=== PATIENT | female | born 1965 | race Caucasian/White ===

== ENCOUNTER 2017-06-18 21:26 | Emergency (ER) | payer BC ==
[~2017-06-18] VITALS: Ht 160 cm; Wt 57.2 kg
--- NOTE | 2017-06-18 22:03 | NUR ---
ARRIVAL PATIENT AMBULATORY TO ROOM 6, ASSESSMENT COMPLETED, CONNECTED TO ALL MONITORS, AWAITING MD GIRON.
--- NOTE | 2017-06-18 22:04 | ER.PDOC ---
General Chief Complaint: Requesting Medical Care Stated Complaint: NAUSEA,DIARRHEA (COLORLESS),COUGH Time seen by MD: 21:57 Source: patient Exam Limitations: no limitations History of Present Illness Initial Comments nvd Timing/Duration: 24 hours Severity/Quality: mild Abdominal Pain Onset Location: Epigastric Associated Symptoms (vomiting): mild vomiting Associated Symptoms (diarrhea): mild Prior symptoms/Treatment: Similar symptoms previous Allergies: Coded Allergies: duloxetine (Verified Allergy, Mild, 06/18/17) Bleach (Sodium Hypochlorite) (Verified Allergy, Unknown, 06/18/17) amoxicillin (Verified Allergy, Unknown, 06/18/17) celecoxib (Verified Allergy, Unknown, 06/18/17) cyclobenzaprine (Verified Allergy, Unknown, 06/18/17) tramadol (Verified Allergy, Unknown, 06/18/17) Vital Signs First Vital Signs Date Time Temp Pulse Resp B/P (MAP) Pulse Ox O2 Delivery O2 Flow Rate FiO2 06/18/17 21:57 98.3 87 18 95 06/18/17 22:01 157/99 (118) Last Vital Signs Date Time Temp Pulse Resp B/P (MAP) Pulse Ox O2 Delivery O2 Flow Rate FiO2 06/18/17 22:01 98.3 87 18 157/99 (118) 95 Family History Significant Family History: no pertinent family hx Constitutional: denies fever Respiratory: denies cough Cardiovascular: denies chest pain Gastrointestinal: denies abdomen distended, nausea, vomiting Musculoskeletal: denies back pain All Other Systems: Reviewed and Negative Physical Exam General Appearance: No Apparent Distress, WD/WN HEENT: PERRL/EOMI, Normal ENT Inspection, TMs Normal, Pharynx Normal Neck: Non-Tender, Full Range of Motion, Supple, Normal Inspection Respiratory: chest non-tender, lungs clear, normal breath sounds, no respiratory distress, no accessory muscle use Cardiovascular: Normal Peripheral Pulses, Regular Rate, Rhythm, No Edema, No Gallop, No JVD, No Murmur Gastrointestinal: Normal Bowel Sounds, Non Tender, Soft Rectal: Normal Exam Back: Normal Inspection, No CVA Tenderness, No Vertebral Tenderness Extremities: Normal Range of Motion, Non-Tender, Normal Inspection, No Pedal Edema, No Calf Tenderness, Normal Capillary Refill, Pelvis Stable Neurologic/Psychiatric: user interface developer II-XII NML as Tested, No Motor/Sensory Deficits, Alert, Normal Mood/Affect, Oriented x 3 Skin: Normal Color, Warm/Dry Lymphatic: No Adenopathy Progress Progress ua Departure Time of Disposition: 22:34 Disposition: 01 HOME, SELF-CARE Impression: Primary Impression: UTI (urinary tract infection) Condition: Stable Referrals: PCP,UNKNOWN (PCP) PRIMARY CARE PROVIDER Additional Instructions: cipro pyridium MAL MANRIQUE Dr., MD Jun 18, 2017 22:04
[2017-06-18 22:44] LABS: BASOPHIL % 0.2 % (0.0-0.2); EOSINOPHIL % 0.1 % (0.0-5.0); HEMOGLOBIN 18.3 g/dL (12.0-15.0); LYMPHOCYTES # 1.7 10^3/uL (1.0-4.8); LYMPHOCYTES % 12.9 % (24.0-44.0); MEAN CELL HGB 33.1 pg (26-34); MEAN CELL HGB CONCENTRATION 34.3 g/dL (33-37); MEAN CORP VOLUME 96.6 fL (78-100); MEAN PLATELET VOLUME 10.4 fL (7.8-11.0); MONOCYTES # 0.6 10^3/uL (0.3-0.8); MONOCYTES % 4.7 % (5.0-12.0); NEUTROPHIL # 10.9 10^3/uL (1.8-7.7); NEUTROPHILS % 81.9 % (41.0-85.0); WHITE BLOOD CELL 13.3 10^3/uL (4.5-11.0)
[2017-06-18] MEDS ORDERED: NS 1000ML 1,000 ML IV ONE ×2 (22:55→23:00)
[2017-06-18] MEDS ORDERED: NS 1000ML 1,000 ML ONE (22:56)
[2017-06-18 23:10] LABS: CALCIUM 9.9 mg/dL (8.4-10.5); CARBON DIOXIDE 25.1 mmol/L (20.0-32)
[2017-06-18 23:49] LABS: BILIRUBIN,URINE NEGATIVE (NEGATIVE); UROBILINOGEN,URINE NORMAL (NEGATIVE)
[2017-06-18 23:57] LABS: APPEARANCE,URINE CLEAR (CLEAR); UA COLOR DARK YELLOW (YELLOW); WBC,URINE 0-2 WBC/HPF (0-2)
[2017-06-19 00:36] VITALS: BP 146/66
== END 2017-06-19 00:38 | disposition home or self-care (01) ==
LOC: EEVIPCON 21:26 → ER 21:26
DX: N39.0 Urinary tract infection, site not specified (principal); R11.2 Nausea with vomiting, unspecified; Z88.0 Allergy status to penicillin; Z88.8 Allergy status to other drugs, medicaments and biological substances
CPT/HCPCS: 36415; 80053; 81000; 82150; 82550; 82553; 83690; 85025; 86710; 96360; 99284; A4628; J7030

== ENCOUNTER → 2017-07-31 | Outpatient (CLI) | payer BC ==
--- NOTE | 2017-07-31 14:53 | DIREP ---
PROCEDURE:MRI SPINE LUMBAR W/O COMPARISON:None. INDICATIONS:LBP, RADIATES LEFT AND DOWN LEG TECHNIQUE:A comprehensive examination was performed utilizing a variety of imaging planes and imaging parameters to optimize visualization of suspected pathology. Images were performed without intravenous gadolinium contrast. FINDINGS: ALIGNMENT:No scoliosis. Mild straightening of the normal lumbar lordosis. Vertebral body alignment is maintained. Facet joints appear intact. VERTEBRA:No compression deformity or suspicious bone marrow edema. Multilevel discogenic endplate changes. CORD/CAUDA EQUINA:The conus medullaris terminates at the level of L1-L2. PARASPINAL AREA:No suspicious abnormality of the imaged paraspinal soft tissues. LUMBAR DISC LEVELS T12-L1:No significant posterior disc pathology. Minimal facet arthropathy. No spinal stenosis or neural foraminal encroachment. L1-L2:No significant posterior disc pathology. Minimal facet arthropathy. No spinal stenosis or neural foraminal encroachment. L2-L3:Minimal posterior disc bulge. Mild facet arthropathy. No spinal stenosis. Minimal encroachment on the inferior neural foramina bilaterally. L3-L4:Minimal posterior disc bulge. Mild facet arthropathy. No spinal stenosis. No significant neural foraminal encroachment. L4-L5:Mild diffuse disc bulge with superimposed mild focal left paracentral disc protrusion. This does not result in significant spinal stenosis; however, there is narrowing of the left lateral recess which approximates the left L5 nerve root. Mild facet arthropathy. Mild encroachment on the inferior neural foramina bilaterally. L5-S1:No significant posterior disc pathology. [id number] facet arthropathy. No spinal stenosis. [id number] left neural foraminal encroachment which may contact the undersurface of the left L5 nerve root. Minimal right neural foraminal encroachment. CONCLUSION: 1. No acute osseous abnormality or vertebral body malalignment. 2. Multilevel degenerative disc and spine disease, most prominent within the lower lumbar spine. There is no significant spinal stenosis; however, there is a mild disc bulge with superimposed mild focal left paracentral disc protrusion at L4-L5 which does result in narrowing of the left lateral recess and may potentially affect the left L5 nerve root prior to its exit through the neural foramina. There is mild to moderate encroachment on the left inferior neural foramina at L5-S1 which also may contact the undersurface of the left L5 nerve root. Please correlate with the level of reported radiculopathy. Dictated by: Michael Cooper M.D. On 07/31/2017 at 02:38 PM
== END | disposition home or self-care (01) ==
LOC: RAD 09:07
DX: M51.16 Intervertebral disc disorders with radiculopathy, lumbar region (principal); M48.061 Spinal stenosis, lumbar region without neurogenic claudication
CPT/HCPCS: 72148

== ENCOUNTER → 2017-08-10 | Outpatient (CLI) | payer BC ==
[2017-08-10 16:43] LABS: BASOPHIL % 0.3 % (0.0-0.2); EOSINOPHIL # 0.2 10^3/uL (0.0-0.2); EOSINOPHIL % 3.2 % (0.0-5.0); HEMOGLOBIN 15.3 g/dL (12.0-15.0); LYMPHOCYTES # 2.3 10^3/uL (1.0-4.8); LYMPHOCYTES % 31.2 % (24.0-44.0); MEAN CELL HGB 32.9 pg (26-34); MEAN CELL HGB CONCENTRATION 33.6 g/dL (33-37); MEAN CORP VOLUME 98.1 fL (78-100); MEAN PLATELET VOLUME 9.1 fL (7.8-11.0); MONOCYTES # 0.5 10^3/uL (0.3-0.8); MONOCYTES % 6.7 % (5.0-12.0); NEUTROPHIL # 4.2 10^3/uL (1.8-7.7); NEUTROPHILS % 58.5 % (41.0-85.0); RED CELL DISTRIBUTION WIDTH 12.4 % (11.5-14.5); WHITE BLOOD CELL 7.2 10^3/uL (4.5-11.0)
[2017-08-10 16:50] LABS: BILIRUBIN,URINE NEGATIVE (NEGATIVE); UROBILINOGEN,URINE NORMAL (NEGATIVE)
[2017-08-10 17:12] LABS: APPEARANCE,URINE CLEAR (CLEAR); UA COLOR YELLOW (YELLOW)
[2017-08-10 17:13] LABS: CARBON DIOXIDE 29.3 mmol/L (20.0-32)
== END | disposition home or self-care (01) ==
LOC: LAB 16:13
PROVIDERS: ATTEND Internal Medicine
DX: Z13.220 Encounter for screening for lipoid disorders (principal); Z13.21 Encounter for screening for nutritional disorder; Z13.228 Encounter for screening for other metabolic disorders; Z13.29 Encounter for screening for other suspected endocrine disorder; Z79.899 Other long term (current) drug therapy
CPT/HCPCS: 36415; 80053; 80061; 81000; 82043; 83036; 84439; 84443; 85025; 87086

== ENCOUNTER → 2017-10-08 | Outpatient (CLI) | payer BC ==
[2017-10-08 14:45] LABS: CALCIUM 9.1 mg/dL (8.4-10.5)
== END | disposition home or self-care (01) ==
LOC: LAB 14:12
PROVIDERS: ATTEND Internal Medicine
DX: B02.33 Zoster keratitis (principal); Z79.899 Other long term (current) drug therapy
CPT/HCPCS: 36415; 80053

== ENCOUNTER → 2017-12-18 | Outpatient (CLI) | payer BC ==
--- NOTE | 2017-12-18 12:27 | DIREP ---
PROCEDURE:MRI SPINE CERVICAL W/O COMPARISON:None. INDICATIONS:CERVICALGIA TECHNIQUE:A variety of imaging planes and parameters were utilized for visualization of suspected pathology without contrast. Disc bulge. FINDINGS: CRANIOCERVICAL AREA:Normal foramen magnum with no Chiari malformation. ALIGNMENT:Normal. VERTEBRA:C5-C7 anterior cervical disc fusion changes. No fracture or osseous lesions. SPINAL CORD:Normal size, contour, and signal intensity. PARASPINAL AREA:Normal with no visible mass. OTHER:No additional findings. CERVICAL DISC LEVELS: C2-C3:No significant disc/facet abnormality, spinal stenosis, or foraminal stenosis. C3-C4:Moderate right and mild left neural foraminal narrowing from uncovertebral joint hypertrophy. C4-C5:No significant disc/facet abnormality, spinal stenosis, or foraminal stenosis. C5-C6:No significant disc/facet abnormality, spinal stenosis, or foraminal stenosis. C6-C7:Uncovertebral spurring, resulting and moderate left neural foraminal narrowing. Mild right neural foraminal narrowing. C7-T1:No significant disc/facet abnormality, spinal stenosis, or foraminal stenosis. CONCLUSION:Mild degenerative changes and postsurgical changes without visualized complication as detailed above. Dictated by: Christian Hinojosa DO on 12/18/2017 at 12:21 PM
== END | disposition home or self-care (01) ==
LOC: RAD 12-11 09:16
PROVIDERS: ATTEND Internal Medicine
DX: M47.892 Other spondylosis, cervical region (principal); M25.511 Pain in right shoulder
CPT/HCPCS: 72141

== ENCOUNTER → 2017-12-18 | Outpatient (CLI) | payer BC ==
--- NOTE | 2017-12-18 11:42 | DIREP ---
PROCEDURE:MRI UPPER EXTREM JOINT W O CON RIGHT COMPARISON:None. INDICATIONS:RIGHT SHOULDER PAIN M25.511 TECHNIQUE:A variety of imaging planes and parameters were utilized for visualization of suspected pathology. Images were performed without contrast. FINDINGS: ROTATOR CUFF: Moderate tendinosis of the leading edge fibers of supraspinatus. Otherwise no significant tendinosis. No full-thickness rotator cuff tear.. No muscle atrophy. BICEPS TENDON: Normal intraarticular and extra-aticular biceps. LABRUM :High signal and irregularity of the anteroinferior glenoid labrum, compatible with cartilaginous Bankart injury.. AC JOINT: Mild acromioclavicular osteoarthrosis. No lateral tilt. Type II acromion. BONES:Small Hill-Sachs deformity posterior humeral head.. OTHER:Moderate joint fluid with synovitis. Trace fluid in the subacromial subdeltoid bursa.. No loose bodies. CONCLUSION: 1. 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 2. Moderate joint fluid with synovitis. 3. Moderate leading edge supraspinatus tendinosis without rotator cuff tear 4. Mild acromioclavicular osteoarthritis. Dictated by: Christian Hinojosa DO on 12/18/2017 at 11:36 AM
== END | disposition home or self-care (01) ==
LOC: RAD 12-11 09:17 → MRI 09:12
PROVIDERS: ATTEND Nurse Practitioner Family
DX: M19.011 Primary osteoarthritis, right shoulder (principal); M65.811 Other synovitis and tenosynovitis, right shoulder; M75.101 Unspecified rotator cuff tear or rupture of right shoulder, not specified as traumatic
CPT/HCPCS: 73221-RT

== ENCOUNTER 2017-12-24 17:49 | Emergency (ER) | payer BC ==
[~2017-12-24] VITALS: Ht 162.6 cm; Wt 57.6 kg
--- NOTE | 2017-12-24 17:50 | NUR ---
ARRIVAL PATIENT STATES SHE WENT TO DR. LEVIN, AND HE GAVER HER A COPD MEDICATION AFTER SHE WAS COMPLAINING OF A SORE THROAT. PATIENT STATES SHE IS NOT GETTING BETTER, SORE THROAT AND FEVER X 1 WEEK.
--- NOTE | 2017-12-24 17:50 | NUR ---
[facility] PHYSICIAN NOTIFIED OF FALLING IN CRITERIA WITH HR AND TEMPERATURE.
--- NOTE | 2017-12-24 18:00 | NUR ---
UPDATE THIS NURSE SUGGESTED THAT WE RE-STREP OR TEST PATIENT FOR FLU, BLOOD WORK AND FLUIDS, EPD DENIED.
[2017-12-24 18:09] VITALS: BP 125/66
--- NOTE | 2017-12-24 18:32 | ER.PDOC ---
General Chief Complaint: General Complaint Stated Complaint: SORE THROAT,SWELLING,PAIN Time seen by MD: 18:22 Source: patient Exam Limitations: no limitations History of Present Illness Timing/Duration: gradual, other (4 days) Associated Symptoms: fever/chills, mod sore throat Severity: moderate Worsen By: nothing Prior symptoms/Treatment: Similar symptoms previous Allergies: Coded Allergies: duloxetine (Verified Allergy, Mild, 06/18/17) Bleach (Sodium Hypochlorite) (Verified Allergy, Unknown, 06/18/17) amoxicillin (Verified Allergy, Unknown, 06/18/17) celecoxib (Verified Allergy, Unknown, 06/18/17) cyclobenzaprine (Verified Allergy, Unknown, 06/18/17) tramadol (Verified Allergy, Unknown, 06/18/17) Past Medical History Medical History: no pertinent history, other Surgical History: back, cholecystectomy, neck LMP (females 10-50): postmenopause Social History Smoking: cigarettes, greater than 1 pack/day Alcohol Use: none Drug Use: Other Narcotics Constitutional: chills, fever, malaise Eyes: no symptoms reported Ears: no symptoms reported Nose: no symptoms reported Mouth: no symptoms reported Throat: see HPI Respiratory: no symptoms reported Cardiovascular: no symptoms reported Gastrointestinal: no symptoms reported All Other Systems: Reviewed and Negative Physical Exam General Appearance: alert, mild distress Head/Neck: head nml inspection, neck nml inspection, trachea midline, no lymphadenopathy Eyes: eyes nml inspection, PERRL, no nystagmus Mouth: lips, gums nml, no drooling, no thrush Throat: pharyngeal erythema (No exudate. No tonsillar enlargement.) Respiratory: no resp. distress, lungs clear CVS: reg. rate & rhythm, heart sounds nml Abdomen: non-tender Extremities: non-tender, ROM nml Skin Exam: Normal Color, Warm/Dry NEURO/PSYCH: oriented X3, mood/effect nml Results/Orders Results/Orders Laboratory Tests Test 12/24/17 18:28 Group A Streptococcus Screen NEGATIVE (NEGATIVE) Administered Medications Medications (Trade) Dose Ordered Sig/Di Route PRN Reason Start Time Stop Time Status Last Admin Dose Admin Acetaminophen (Tylenol) 1,000 mg STAT STAT PO 12/24/17 18:39 12/24/17 18:40 DC 12/24/17 18:44 Progress Progress Strep screen neg. Departure Time of Disposition: 19:20 Disposition: 01 HOME, SELF-CARE Impression: Primary Impression: Influenza Condition: Stable Patient Instructions: Influenza, Adult Referrals: GERRY LEVIN MD (PCP) PRIMARY CARE PROVIDER Additional Instructions: Bedrest, fluids. Duration or Time Spent with Pa: 30 LITO MUSTAFA DO Dec 24, 2017 18:32
[2017-12-24] MEDS ORDERED: TYLENOL PO STA (18:39)
[2017-12-24] MEDS ORDERED: TYLENOL PO ONE (18:39)
[2017-12-24 19:37] VITALS: BP 106/58
[2017-12-24 19:56] VITALS: BP 106/58
== END 2017-12-24 19:50 | disposition home or self-care (01) ==
LOC: ER 17:49
DX: J11.1 Influenza due to unidentified influenza virus with other respiratory manifestations (principal); R53.81 Other malaise; F17.210 Nicotine dependence, cigarettes, uncomplicated; F11.10 Opioid abuse, uncomplicated
CPT/HCPCS: 87070; 87880; 99284; A9150

== ENCOUNTER 2018-02-14 21:33 | Emergency (ER) | payer BC, OTHER ==
[~2018-02-14] VITALS: Ht 162.6 cm; Wt 62.1 kg
[2018-02-14 21:41] VITALS: BP 123/76
[2018-02-14] MEDS ORDERED: NORFLEX IM STA (21:57)
[2018-02-14] MEDS ORDERED: TORADOL IM ONE (22:00)
--- NOTE | 2018-02-14 22:04 | ER.PDOC ---
General Chief Complaint: Lower Back Pain or Injury Stated Complaint: BACK PAIN Time seen by MD: 21:59 Source: patient, family Exam Limitations: no limitations History of Present Illness Initial Comments pt has hx of chronic low back pain and is on chronic high dose narcotics of oxycodone and dilaudid. pt states that she has started new job which requires more movement. now has back pain currently on left leg radiating down the leg, but she states that that pain migrates from right to left leg and is only currently on the left leg. Timing/Duration: week Severity/Quality: moderate Radiation: lower legs (left) Method of Injury: unknown Modifying Factors: improves with pain medication Allergies: Coded Allergies: duloxetine (Verified Allergy, Mild, 06/18/17) Bleach (Sodium Hypochlorite) (Verified Allergy, Unknown, 06/18/17) amoxicillin (Verified Allergy, Unknown, 06/18/17) celecoxib (Verified Allergy, Unknown, 06/18/17) cyclobenzaprine (Verified Allergy, Unknown, 06/18/17) tramadol (Verified Allergy, Unknown, 06/18/17) Past Medical History Medical History: other (chronic pain) Surgical History: cholecystectomy LMP (females 10-50): postmenopause Social History Smoking: less than 1 pack/day Alcohol Use: none Drug Use: none Physical Exam General Appearance: Moderate Distress HEENT: PERRL/EOMI, Normal ENT Inspection, TMs Normal, Pharynx Normal Neck: Non-Tender, Normal Alignment Cardiovascular/Respiratory: Regular Rate, Rhythm, No M/R/G, Normal Peripheral Pulses, No JVD, Normal Breath Sounds, No Respiratory Distress Gastrointestinal: Normal Bowel Sounds, No Organomegaly, No Pulsatile Mass, Non Tender, Soft Extremities: No Evidence of Injury, Non-Tender, No Pedal Edema, Pelvis Stable Neuro/Psych: Alert, Other (SLR nonphysiologic starts at 10 degrees ) Skin: Normal Color, Warm/Dry Results/Orders Results/Orders Administered Medications Medications (Trade) Dose Ordered Sig/Di Route PRN Reason Start Time Stop Time Status Last Admin Dose Admin Ketorolac Tromethamine (Toradol) 60 mg OT ONCE IM 02/14/18 22:00 02/14/18 22:01 DC 02/14/18 22:12 Orphenadrine Citrate (Norflex) 60 mg STAT STAT IM 02/14/18 21:57 02/14/18 22:00 DC 02/14/18 22:12 Progress Progress pt reports good relief of symptoms with toradol and norflex; explained that this is not neuropathic pain. recommend ibuprofen, decrease narcotics and use muscle relaxants Departure Time of Disposition: 22:39 Disposition: 01 HOME, SELF-CARE Impression: Primary Impression: Lumbar sprain Additional Impression: Chronic low back pain with left-sided sciatica Condition: Improved Referrals: GERRY LEVIN MD (PCP) PRIMARY CARE PROVIDER Duration or Time Spent with Pa: 20 Problem Qualifiers Primary Impression: Lumbar sprain Encounter type: initial encounter Qualified Codes: S33.5XXA - Sprain of ligaments of lumbar spine, initial encounter Additional Impression: Chronic low back pain with left-sided sciatica Back pain laterality: left Qualified Codes: M54.42 - Lumbago with sciatica, left side; G89.29 - Other chronic pain CARMEN SANCHEZ MD February 14, 2018 22:04
[2018-02-14] MEDS ORDERED: TORADOL ONE (22:05)
[2018-02-14] MEDS ORDERED: NORFLEX ONE (22:06)
[2018-02-14 22:59] VITALS: BP 123/76
== END 2018-02-14 22:58 | disposition home or self-care (01) ==
LOC: ER 21:33
DX: S33.5XXA Sprain of ligaments of lumbar spine, initial encounter (principal); G89.29 Other chronic pain; M54.42 Lumbago with sciatica, left side; F17.210 Nicotine dependence, cigarettes, uncomplicated; Z88.1 Allergy status to other antibiotic agents; Z88.8 Allergy status to other drugs, medicaments and biological substances; Z88.0 Allergy status to penicillin; Z90.49 Acquired absence of other specified parts of digestive tract; X58.XXXA Exposure to other specified factors, initial encounter; Y93.89 Activity, other specified; Y92.89 Other specified places as the place of occurrence of the external cause; Y99.8 Other external cause status
CPT/HCPCS: 96372 ×2; 99284; J1885; J2360

== ENCOUNTER → 2018-02-25 | Outpatient (CLI) | payer OTHER ==
--- NOTE | 2018-02-25 10:15 | DIREP ---
PROCEDURE:XRAY SPINE LUMBAR 2-3 VWS COMPARISON:None. INDICATIONS:LUMBAGO WITH SCIATICA-BILATERAL, LBP TECHNIQUE:AP, lateral, and coned down lateral views of the lumbar spine are provided. FINDINGS: ALIGNMENT:Normal. VERTEBRAE:Minimal multilevel anterior osteophyte formation.. DISK SPACES:Normal. SPONDYLOLISTHESIS:None. SACROILIAC JOINTS:Normal. OTHER:Mild facet disease L4-L5 and L5-S1.. CONCLUSION:Mild lower lumbar facet disease and minimal multilevel anterior osteophyte formation. Dictated by: Christian Hinojosa DO on 02/25/2018 at 10:13 AM
== END | disposition home or self-care (01) ==
LOC: RAD 09:25
PROVIDERS: ATTEND Internal Medicine
DX: M54.41 Lumbago with sciatica, right side (principal); M54.42 Lumbago with sciatica, left side; W17.89XA Other fall from one level to another, initial encounter
CPT/HCPCS: 72100

== ENCOUNTER 2018-03-07 12:40 | Emergency (ER) | payer OTHER ==
[~2018-03-07] VITALS: Ht 154.9 cm; Wt 59.0 kg
[2018-03-07 13:03] VITALS: BP 155/64
[2018-03-07] MEDS ORDERED: TORADOL ONE (13:09)
[2018-03-07] MEDS ORDERED: TORADOL IM STA (13:09)
[2018-03-07] MEDS ORDERED: KENALOG-40 IM STA (13:09)
[2018-03-07] MEDS ORDERED: KENALOG-40 ONE (13:10)
--- NOTE | 2018-03-07 13:13 | ER.PDOC ---
General Chief Complaint: Extremities Stated Complaint: L LEG PAIN Time seen by MD: 13:10 Source: patient Exam Limitations: no limitations History of Present Illness Initial Comments Left sciatic pain for 3 Months worse today despite taking OxyContin given by her pain Doctor. Denies injury. Quality: moderate Location: hip (L) Symptoms prior to fall: denies symptoms Other Injuries: none Allergies: Coded Allergies: duloxetine (Verified Allergy, Mild, 06/18/17) Bleach (Sodium Hypochlorite) (Verified Allergy, Unknown, 06/18/17) amoxicillin (Verified Allergy, Unknown, 06/18/17) celecoxib (Verified Allergy, Unknown, 06/18/17) cyclobenzaprine (Verified Allergy, Unknown, 06/18/17) tramadol (Verified Allergy, Unknown, 06/18/17) Past Medical History Medical History: no pertinent history Surgical History: cholecystectomy, neck LMP (females 10-50): postmenopause Social History Smoking: cigarettes, greater than 1 pack/day Alcohol Use: none Drug Use: Oxy, Other Narcotics Review of Systems Constitutional: no symptoms reported EENTM: no symptoms reported Respiratory: no symptoms reported Cardiovascular: no symptoms reported Gastrointestinal: no symptoms reported Musculoskeletal: see HPI All Other Systems: Reviewed and Negative Physical Exam General Appearance: No Apparent Distress, WD/WN Extremities: hip pain on movement (left) Neck: nml inspection, non-tender Cardiovascular/Respiratory: Regular Rate, Rhythm, No M/R/G, Normal Peripheral Pulses, No JVD, Normal Breath Sounds, No Respiratory Distress Abdominal: Non-Tender, No Organomegaly, No Hernia Back: Normal Inspection, No CVA Tenderness Extremities: No Evidence of Injury, Normal Range of Motion, Non-Tender, No Pedal Edema Neuro/Psych: Alert, canvas marker nml/symmetrical, mood/effect nml, No Motor/Sensory Deficits, Relexes nml Skin: Normal Color, Warm/Dry Course Vitals & review Data Vital Sign - Last 24 Hours 02/14/18 03/07/18 03/07/18 03/07/18 22:59 12:54 12:54 13:03 Temp 98.3 98.3 98.3 Pulse 77 81 80 81 Resp 18 B/P (MAP) 155/64 (94) Pulse Ox 99 99 O2 Delivery Room Air Room Air Departure Time of Disposition: 13:12 Disposition: 01 HOME, SELF-CARE Impression: Primary Impression: Sciatica of left side Condition: Stable Referrals: GERRY LEVIN MD (PCP) PRIMARY CARE PROVIDER Additional Instructions: Continue home medications F/U with your pain Doctor tomorrow. Duration or Time Spent with Pa: 20 mins MEHRDAD LUNA MD Mar 07, 2018 13:13
[2018-03-07 13:46] VITALS: BP 155/64
== END 2018-03-07 13:35 | disposition home or self-care (01) ==
LOC: ER 12:40
DX: M54.32 Sciatica, left side (principal); F17.210 Nicotine dependence, cigarettes, uncomplicated; Z88.0 Allergy status to penicillin; Z90.49 Acquired absence of other specified parts of digestive tract; Z88.8 Allergy status to other drugs, medicaments and biological substances
CPT/HCPCS: 96372 ×2; 99284; J1885; J3301

== ENCOUNTER → 2018-04-15 | Outpatient (CLI) | payer OTHER ==
--- NOTE | 2018-04-15 14:01 | DIREP ---
PROCEDURE:MRI SPINE LUMBAR W/O COMPARISON:[facility], MR, MRI SPINE LUMBAR W/O, 07/31/2017, 10:04 AM. INDICATIONS:LUMBAR RADICULOPATHY M54.16 TECHNIQUE:A comprehensive examination was performed utilizing a variety of imaging planes and imaging parameters to optimize visualization of suspected pathology. Images were performed without intravenous gadolinium contrast. FINDINGS: ALIGNMENT:No scoliotic curvature seen. Mild straightening of the normal lumbar lordosis.. VERTEBRA:No compression deformity or suspicious bone marrow edema. Multilevel endplate marrow degenerative changes. CORD/CAUDA EQUINA:The conus medullaris terminates at the level of L1-L2. PARASPINAL AREA:No suspicious abnormality of the imaged paraspinal soft tissues. LUMBAR DISC LEVELS T12-L1:No significant posterior disc pathology. Minimal facet arthropathy. No spinal stenosis or neural foraminal encroachment. L1-L2:No significant posterior disc pathology. Minimal facet arthropathy. No spinal stenosis or neural foraminal encroachment. L2-L3:Annular disc bulge extending into the floor of the neural foramina contributing to mild bilateral narrowing unchanged from prior exam. No central canal stenosis. L3-L4:Minimal posterior disc bulge. Mild facet arthropathy. No spinal stenosis. No significant neural foraminal encroachment. L4-L5:Mild diffuse disc bulge with superimposed mild focal left paracentral disc protrusion improved from prior. Less narrowing of the left lateral recess compared to prior exam. No central canal stenosis. Mild facet arthropathy. Mild encroachment on the inferior neural foramina bilaterally. L5-S1:Diffuse annular/foraminal disc bulge now with superimposed left foraminal disc protrusion/extrusion measuring 10 x 7 mm which is developed since prior examination producing probable impingement on the exiting left L5 nerve root. No central canal stenosis. Right neural foramen mildly narrowed. CONCLUSION: 1. Interval development of left foraminal disc protrusion/extrusion with probable impingement on the exiting left L5 nerve root, correlate for left L5 radiculopathy. 2. Previously noted left paracentral disc protrusion L4-5 appears improved. 3. Remainder of lumbar spine degenerative changes are unchanged as above. Dictated by: Thee Triana M.D. on 04/15/2018 at 01:39 PM
--- NOTE | 2018-04-15 14:11 | DIREP ---
PROCEDURE:MRI SPINE THORACIC W/O COMPARISON:None. INDICATIONS:M54.6 THORACIC SPINE PAIN TECHNIQUE:A variety of imaging planes and parameters were utilized for visualization of suspected pathology. Images were performed without contrast. FINDINGS: SPINAL CORD/CONUS:Normal signal and contour. No mass lesions seen.. ALIGNMENT:Normal alignment, no listhesis. DISCS: Small left T2-3 left paracentral disc protrusion effacing the ventral thecal sac. No central canal/neural foraminal stenosis. Small T5-6 central disc protrusion effacing the ventral thecal sac and may just contact the cord. No canal stenosis. No neural foraminal narrowing. Left paracentral T8-9 disc protrusion effaces the ventral thecal sac without cord contact. Finding may produce mild left neural foraminal narrowing. Small T7-11 disc bulge without central canal or neural foraminal stenosis. VERTEBRAE:Normal marrow signal.. PARASPINAL AREA:Normal. CONCLUSION: 1. Multilevel thoracic spine degenerative disc disease without central canal or neural foraminal stenosis. No cord flattening or edema. 2. T8-9 disc protrusion may produce mild left neural foraminal narrowing. Dictated by: Thee Triana M.D. on 04/15/2018 at 02:01 PM
== END | disposition home or self-care (01) ==
LOC: MRI 09:03
PROVIDERS: ATTEND Anesthesiology Pain Medicine
DX: M54.16 Radiculopathy, lumbar region (principal); M51.34 Other intervertebral disc degeneration, thoracic region
CPT/HCPCS: 72146; 72148

== ENCOUNTER → 2018-08-10 | Outpatient (CLI) | payer OTHER ==
--- NOTE | 2018-08-11 10:55 | DIREP ---
PROCEDURE:XRAY KNEE 3 VIEWS-RT COMPARISON:None. INDICATIONS:RIGHT KNEE PAIN M25.561 FINDINGS: BONES:Normal. JOINTS:Normal. SOFT TISSUES:Normal. OTHER:No additional findings. CONCLUSION:Normal examination. Dictated by: Mathew Bonilla M.D. on 08/11/2018 at 10:53 AM
== END | disposition home or self-care (01) ==
LOC: RAD 16:42
PROVIDERS: ATTEND Nurse Practitioner Family
DX: M25.561 Pain in right knee (principal)
CPT/HCPCS: 73562-RT

== ENCOUNTER → 2018-10-07 | Outpatient (CLI) | payer OTHER ==
--- NOTE | 2018-10-07 20:56 | DIREP ---
PROCEDURE:MR KNEE WITHOUT CONTRAST [Right] TECHNIQUE:Axial proton density fat sat; coronal T1 and inversion recovery; sagittal proton density, proton density fat sat and T2 weighted sequences were obtained. COMPARISON:None. INDICATIONS:RIGHT KNEE PAIN M25.561 FINDINGS: Menisci: The medial and lateral menisci are intact. Cruciate ligaments: The anterior and posterior cruciate ligaments are normal. Bones and joints space: There is moderate-sized joint effusion. There are no loose bodies. Marrow edema is present in the anterior aspect of the lateral tibial plateau series 401 images 17-20. There is no fracture line. There is thinning of the articular cartilage in the central weight-bearing portion the medial femoral condyle series 701, image 15 without discrete full-thickness defect. The articular cartilage in the lateral femorotibial compartment is intact. Collateral ligaments: The medial and lateral collateral ligaments are intact. Extensor mechanism: The quadriceps and patellar tendons are normal. The patella is intact. Fibrillation is present in the articular cartilage in the medial patellar facet series 201, image 24. No full-thickness defect is identified. The medial and lateral retinacula are normal. The pre-femoral, suprapatellar and infrapatellar fat pads are normal. There is no prepatellar or infrapatellar bursitis. Miscellaneous: The muscles and tendons about the knee are intact. The neurovascular structures are normal. The tibiofibular joint is normal. There is no Ahmadi's cyst. CONCLUSION: 1. Moderate-sized joint effusion. 2. Thinning of the articular cartilage in the medial femoral condyle with fibrillation of the articular cartilage in the medial patellar facet. 3. Marrow edema in the anterior aspect of the lateral tibial plateau consistent with contusion. No fracture line is identified. Dictated by: Kofi Hammond M.D. on 10/07/2018 at 08:48 PM
--- NOTE | 2018-10-07 21:00 | DIREP ---
PROCEDURE:MR KNEE WITHOUT CONTRAST [Left] TECHNIQUE:Axial proton density fat sat; coronal T1 and inversion recovery; sagittal proton density, proton density fat sat and T2 weighted sequences were obtained. COMPARISON:None. INDICATIONS:LEFT KNEE PAIN M25.562 FINDINGS: Menisci: The medial and lateral menisci are intact. Cruciate ligaments: The anterior and posterior cruciate ligaments are normal. Bones and joint space: There is a small joint effusion. There are no loose bodies. There is no fracture, marrow edema, destructive intraosseous lesion or evidence of avascular necrosis. The articular cartilage in all 3 compartments is intact. Collateral ligaments: The medial and lateral collateral ligaments are normal. Extensor mechanism: The quadriceps and patellar tendons are normal. The patella is intact. The medial and lateral retinacula are normal. The pre-femoral, suprapatellar and infrapatellar fat pads are normal. There is no prepatellar or infrapatellar bursitis. Miscellaneous: The muscles and tendons about the knee are intact. The neurovascular structures are normal. The tibiofibular joint is normal. There is a small a moderate sized Ahmadi's cyst measuring 4.76 x 2.13 x 1.03 cm (cc by medial-lateral by AP) on sagittal series 401, image 18 and axial series 201, image 26. There is no evidence of extravasation. CONCLUSION: 1. Small joint effusion. 2. Small moderate-sized Ahmadi's cyst. Dictated by: Kofi Hammond M.D. on 10/07/2018 at 08:55 PM
== END | disposition home or self-care (01) ==
LOC: MRI 16:52
PROVIDERS: ATTEND Nurse Practitioner Family
DX: M25.462 Effusion, left knee (principal); M71.22 Synovial cyst of popliteal space [Baker], left knee; M25.461 Effusion, right knee; M62.89 Other specified disorders of muscle
CPT/HCPCS: 73721

== ENCOUNTER 2018-12-31 06:52 | Day surgery (SDC) | payer OTHER ==
[2018-12-28 15:24] VITALS: BP 118/80
[2018-12-28 16:22] LABS: BASOPHIL % 0.5 % (0.0-0.2); EOSINOPHIL # 0.1 10^3/uL (0.0-0.2); EOSINOPHIL % 1.5 % (0.0-5.0); HEMOGLOBIN 15.1 g/dL (12.0-15.0); LYMPHOCYTES % 49.2 % (24.0-44.0); MEAN CELL HGB 34.3 pg (26-34); MEAN CELL HGB CONCENTRATION 35.4 g/dL (33-37); MEAN CORP VOLUME 96.8 fL (78-100); MONOCYTES # 0.5 10^3/uL (0.3-0.8); MONOCYTES % 8.3 % (5.0-12.0); NEUTROPHIL # 2.4 10^3/uL (1.8-7.7); NEUTROPHILS % 40.3 % (41.0-85.0); RED CELL DISTRIBUTION WIDTH 12.2 % (11.5-14.5)
[2018-12-28 16:40] LABS: CALCIUM 8.7 mg/dL (8.4-10.5); CARBON DIOXIDE 27.7 mmol/L (20.0-32)
[~2018-12-31] VITALS: Ht 160 cm; Wt 64.5 kg
[~2018-12-31 06:52] MED LIST: ASCO500T2 PO; CITA20TA6 PO; DICL50TA4 PO; DIPRIVAN IV ONE; ESOM40CA PO; HYDR-3105 PO; LACTATED RINGERS 1,000 ML IV SCH; LACTATED RINGERS 1,000 ML ONE; LIDOCAINE 2% VIAL ONE; LORA10TA3 PO; MOVIPREP POWDER PACKET PO STA; MULT1TAB52 PO; POTA20TA14 PO; PREG100C PO
[2018-12-31 06:55] VITALS: BP 101/71
[2018-12-31 08:00] VITALS: BP 99/61
[2018-12-31 08:15] VITALS: BP 114/77
[2018-12-31 08:30] VITALS: BP 98/63
[2018-12-31 08:45] VITALS: BP 118/72
--- NOTE | 2018-12-31 08:51 | OPH ---
DATE OF SURGERY: PREOPERATIVE DIAGNOSIS: Need for screening. POSTOPERATIVE DIAGNOSES: Check path on sigmoid colon polyp. SURGEON: Cong Russo DO TRANSPORTATION ENGINEERING TECHNICIAN: OR staff. ANESTHESIA: Total intravenous anesthesia by Sridhar Berry CRNA. PROCEDURES PERFORMED: Long flexible colonoscopy to cecum, electrocautery loop polypectomy in the distal sigmoid colon. SPECIMENS: Sigmoid colon polyp to path. ESTIMATED BLOOD LOSS: 3 mL. COUNTS: At the completion of the case, counts were correct per OR staff. DESCRIPTION OF PROCEDURE: The patient is a very pleasant 53-year-old female known from previous evaluation. Prior to procedure, informed consent was obtained. At the time of procedure, she was taken to the operative suite and placed in supine position. After time-out was completed, she was placed in left lateral recumbent position. With excellent sedation, rectal exam was performed. There were no masses. Next, the colonoscope was advanced transanally with pneumoinsufflation proximally to the level of cecum. The colon prep was adequate. Once cecum was visualized, camera was slowly withdrawn to facilitate visualization of the ascending colon, hepatic flexure, transverse colon, splenic flexure, descending colon, and sigmoid. In the distal sigmoid near the rectosigmoid junction, a broad-based polyp was identified, it was removed with loop electrocautery. It was retained with suction and the scope was withdrawn with the specimens retained for pathology. The camera was re-advanced to the level of the lesion. The base was treated with electrocautery. With good hemostasis noted, the camera was slowly withdrawn to the remainder of the sigmoid and the rectum to the level of 5 cm, where it was retroflexed and reinserted. Anal verge was visualized and within normal limits. Camera was reduced. Colon was decompressed. Colonoscope was removed. The patient tolerated this procedure well. There were no acute complications noted. Cong Russo DO DR: YARIEL/josé miguel JOB# [id number] CC: Priscilla ORTEGA
== END 2018-12-31 08:50 | disposition home or self-care (01) ==
LOC: SDC 06:52
PROVIDERS: ATTEND Surgery
DX: Z12.11 Encounter for screening for malignant neoplasm of colon (principal); D12.5 Benign neoplasm of sigmoid colon; K21.9 Gastro-esophageal reflux disease without esophagitis; F41.9 Anxiety disorder, unspecified; M19.90 Unspecified osteoarthritis, unspecified site; F17.210 Nicotine dependence, cigarettes, uncomplicated; F15.11 Other stimulant abuse, in remission; E66.3 Overweight; Z68.25 Body mass index [BMI] 25.0-25.9, adult; Z79.899 Other long term (current) drug therapy; Z88.8 Allergy status to other drugs, medicaments and biological substances; Z88.1 Allergy status to other antibiotic agents; Z91.048 Other nonmedicinal substance allergy status; Z79.1 Long term (current) use of non-steroidal anti-inflammatories (NSAID); Z98.890 Other specified postprocedural states; Z90.49 Acquired absence of other specified parts of digestive tract; Z88.0 Allergy status to penicillin; Z83.3 Family history of diabetes mellitus; Z82.49 Family history of ischemic heart disease and other diseases of the circulatory system
CPT/HCPCS: 36415; 45385; 80053; 85025; 85610; 85730; 88305; J2001; J3490; J7120

== ENCOUNTER → 2019-07-13 | Outpatient (CLI) | payer OTHER ==
[~2019-07-13] MED LIST changes: -DIPRIVAN IV ONE; -LACTATED RINGERS 1,000 ML IV SCH; -LACTATED RINGERS 1,000 ML ONE; -LIDOCAINE 2% VIAL ONE; -MOVIPREP POWDER PACKET PO STA
--- NOTE | 2019-07-13 18:35 | DIREP ---
This report includes an Addendum and supersedes previous reports for this exam. PROCEDURE:XR SPINE CERVICAL 2 OR 3 VIEWS COMPARISON:[facility], CT, CT SPINE CERVICAL W/O, 05/02/2016, 01:20 PM. INDICATIONS:M54.2 CERVICALGIA, M54.12 CERVICAL RADICULOPATHY TECHNIQUE:AP, lateral, and dens views of the cervical spine are provided. FINDINGS: ALIGNMENT:Normal. VERTEBRAE:C5-C7 anterior cervical disc fusion with 50% subsistence of the superior most screw in the C5 vertebral body anteriorly. No evidence of complete loosening however. Multilevel facet and uncovertebral spurring otherwise. No acute fracture of the hardware or osseous structures. No prevertebral soft tissue swelling.. DISK SPACES:Partial fusion of the postsurgical disc spaces. Otherwise normal. CERVICAL RIBS:None. OTHER:Normal. CONCLUSION:C5-C7 anterior cervical disc fusion with 50% subsistence of the superior most screw Dictated by: Christian Hinojosa DO on 07/13/2019 at 06:31 PM NDUM: COMPARISON:[facility], SPINE CERVICAL 2 VIEW, 11/08/2015, 09:32 AM. Upon further review of the lateral images, there is apparent proximal fracturing of the anterior cervical disc fusion screws at the level of the fusion plate. Redemonstrated sepsis since of the superior most screw. Again, this is grossly similar alignment and appearance however to previous examination dated May 02, 2016. Additionally fractured proximal screws are also grossly stable since 2015. CONCLUSION:C5-C7 anterior cervical disc fusion with proximal fracturing of the fixation screws and 50% subsistence of the superior most screw. Findings are grossly stable to prior exam Dictated by: Christian Hinojosa DO on 08/10/2019 at 08:30 AM
--- NOTE | 2019-07-14 08:59 | DIREP ---
PROCEDURE:MRI SPINE CERVICAL W/O COMPARISON:[facility], MR, MRI SPINE CERVICAL W/O, 12/18/2017, 09:12 AM. INDICATIONS:M54.12 CERVICAL RADICULOPATHY, M54.2 CERVICALGIA TECHNIQUE:A variety of imaging planes and parameters were utilized for visualization of suspected pathology without contrast. FINDINGS: CRANIOCERVICAL AREA:Normal foramen magnum with no Chiari malformation. ALIGNMENT:Normal. VERTEBRA:Redemonstrated C5-C7 anterior cervical disc fusion changes. No interval complication. No fracture or osseous lesions. SPINAL CORD:Questionable minimal myelomalacia posterior to the C4-C5 disc level.. PARASPINAL AREA:Normal with no visible mass. OTHER:No additional findings. CERVICAL DISC LEVELS: C2-C3:No significant disc/facet abnormality, spinal stenosis, or foraminal stenosis. C3-C4:Minimal posterior disc osteophyte complex. Minimal narrowing of the spinal canal. Moderate right and mild left neural foraminal narrowing from uncovertebral joint hypertrophy. C4-C5:Posterior disc osteophyte with mild effacement of ventral portion of thecal sac and mild mass effect on the spinal cord. Mild right neural foraminal narrowing. C5-C6:No significant disc/facet abnormality, spinal stenosis, or foraminal stenosis. C6-C7:Uncovertebral spurring, resulting and moderate left neural foraminal narrowing. Mild right neural foraminal narrowing. C7-T1:No significant disc/facet abnormality, spinal stenosis, or foraminal stenosis. CONCLUSION: 1. Questionable minimal myelomalacia posterior to the C4-C5 level from tumor disc osteophyte complex exerting mild mass effect on the spinal cord. 2. Otherwise, grossly stable degenerative and postsurgical changes as detailed above. Dictated by: Christian Hinojosa DO on 07/14/2019 at 08:54 AM
--- NOTE | 2019-07-14 09:14 | DIREP ---
PROCEDURE:MRI SPINE LUMBAR W/O COMPARISON:[facility], MR, MRI SPINE LUMBAR W/O, 04/15/2018, 09:19 AM. INDICATIONS:M54.16 LUMBAR RADICULOPATHY TECHNIQUE:A comprehensive examination was performed utilizing a variety of imaging planes and imaging parameters to optimize visualization of suspected pathology. Images were performed without intravenous gadolinium contrast. FINDINGS: ALIGNMENT:No scoliotic curvature seen. Mild decrease of the normal lumbar lordosis.. VERTEBRA:No fracture, pars defect, or osseous lesion. CORD/CAUDA EQUINA:The conus medullaris terminates at the level of L1-L2. Normal signal PARASPINAL AREA:No suspicious abnormality of the imaged paraspinal soft tissues. LUMBAR DISC LEVELS T12-L1:No significant posterior disc pathology. Minimal facet arthropathy. No spinal stenosis or neural foraminal encroachment. L1-L2:No significant posterior disc pathology. Minimal facet arthropathy. No spinal stenosis or neural foraminal encroachment. L2-L3:Minimal disc bulge with mild spinal canal and moderate bilateral neural foraminal narrowing. L3-L4:Mild disc bulge with minimal bilateral neural foraminal and spinal canal narrowing. Mild facet disease. L4-L5:Disc desiccation height loss with circumferential disc bulge. Moderate bilateral neural foraminal narrowing. Mild spinal canal narrowing. L5-S1:Moderate facet disease with circumferential disc bulge. Mild spinal canal with severe bilateral neural foraminal narrowing, left greater than right. CONCLUSION:Mildly worsened degenerative changes as detailed above. Worst level bilateral L5-S1. Dictated by: Christian Hinojosa DO on 07/14/2019 at 09:05 AM
== END | disposition home or self-care (01) ==
LOC: RAD 15:48
PROVIDERS: ATTEND Physician Assistant Surgical
DX: M43.22 Fusion of spine, cervical region (principal)
CPT/HCPCS: 72040; 72141; 72148